=== PATIENT | female | born 1935 | race Caucasian/White ===

== ENCOUNTER 2017-03-01 16:14 | Outpatient (CLI) | payer MEDICARE, OTHER | END 2017-03-01 16:15 | disposition home or self-care (01) | LOC: BICMAMMO 16:14 | PROVIDERS: ATTEND Specialist | DX: R92.8 Other abnormal and inconclusive findings on diagnostic imaging of breast (principal); R92.1 Mammographic calcification found on diagnostic imaging of breast | CPT/HCPCS: G0204; G0279; 77066 ==

== ENCOUNTER 2017-10-18 13:07 | Outpatient (CLI) | payer MEDICARE, OTHER | END 2017-10-18 13:08 | disposition home or self-care (01) | LOC: CP 13:07 | PROVIDERS: ATTEND Internal Medicine Critical Care Medicine | DX: J44.9 Chronic obstructive pulmonary disease, unspecified (principal) | CPT/HCPCS: 94060; 94727; 94729 ==

== ENCOUNTER 2018-03-07 09:11 | Outpatient (CLI) | payer MEDICARE, OTHER | END 2018-03-07 09:12 | disposition home or self-care (01) | LOC: BICMAMMO 09:11 | PROVIDERS: ATTEND Specialist | DX: Z08 Encounter for follow-up examination after completed treatment for malignant neoplasm (principal); Z85.3 Personal history of malignant neoplasm of breast | CPT/HCPCS: 77066; G0279 ==

== ENCOUNTER 2019-03-11 09:07 | Outpatient (CLI) | payer MEDICARE, OTHER ==
--- NOTE | 2019-03-11 11:23 | MMO ---
Bilateral MAMMO Bilat Diag [facility]. CLINICAL HISTORY: Patient is 83 years old and is seen for diagnostic exam. The patient has no family history of breast cancer. The patient has a history of lumpectomy procedure revealed invasive ductal left breast carcinoma in December, and Ultrasound guided core biopsy procedure revealed invasive ductal left breast carcinoma in November,. The patient has a history of left Ultrasound Guided Core Biopsy in November,, left Lumpectomy in November, - malignant and right Excisional Biopsy in - benign. VIEWS: The views performed were: bilateral craniocaudal with tomosynthesis; bilateral mediolateral oblique with tomosynthesis; and bilateral mediolateral with tomosynthesis. FILMS COMPARED: The present examination has been compared to prior imaging studies performed at [facility] on 11/03/2015, 11/10/2015, 03/01/2017 and 03/07/2018. This study has been interpreted with the assistance of computer-aided detection. MAMMOGRAM FINDINGS: There are scattered fibroglandular densities. Benign calcifications are noted bilaterally. There are stable left sided post-operative changes. There are no suspicious masses, suspicious calcifications, or new areas of architectural distortion. IMPRESSION: THERE IS NO MAMMOGRAPHIC EVIDENCE OF MALIGNANCY. A ROUTINE FOLLOW-UP MAMMOGRAM IN 1 YEAR IS RECOMMENDED. THE RESULTS OF THIS EXAM WERE SENT TO THE PATIENT. ACR BI-RADS Category 2 - Benign finding MAMMOGRAPHY NOTE: 1. A negative mammogram report should not delay a biopsy if a dominant of clinically suspicious mass is present. 2. Approximately 10% to 15% of breast cancers are not detected by mammography. 3. Adenosis and dense breasts may obscure an underlying neoplasm. Reported by: JOSEPHINE YOUNGBLOOD MD Electonically Signed: [id number]
== END 2019-03-11 09:08 | disposition home or self-care (01) ==
LOC: BICMAMMO 09:07
PROVIDERS: ATTEND Specialist
DX: Z08 Encounter for follow-up examination after completed treatment for malignant neoplasm (principal); Z85.3 Personal history of malignant neoplasm of breast
CPT/HCPCS: 77066; G0279

== ENCOUNTER 2020-04-20 09:25 | Outpatient (CLI) | payer MEDICARE, OTHER | END 2020-04-20 09:26 | disposition home or self-care (01) | LOC: BICMAMMO 09:25 | PROVIDERS: ATTEND Specialist | DX: Z08 Encounter for follow-up examination after completed treatment for malignant neoplasm (principal); Z85.3 Personal history of malignant neoplasm of breast | CPT/HCPCS: 77066; G0279 ==

== ENCOUNTER 2020-12-21 13:20 | Outpatient (CLI) | payer MEDICARE, OTHER | END 2020-12-21 13:21 | disposition home or self-care (01) | LOC: BICMAMMO 13:20 | PROVIDERS: ATTEND Student in an Organized Health Care Education/Training Program | DX: M81.0 Age-related osteoporosis without current pathological fracture (principal); M48.02 Spinal stenosis, cervical region; M48.04 Spinal stenosis, thoracic region | CPT/HCPCS: 77080 ==

== ENCOUNTER 2021-06-29 14:22 | Outpatient (CLI) | payer MEDICARE, OTHER | END 2021-06-29 14:23 | disposition home or self-care (01) | LOC: BICRAD 14:22 | PROVIDERS: ATTEND Podiatrist | DX: S90.31XA Contusion of right foot, initial encounter (principal); R60.0 Localized edema; M79.671 Pain in right foot; M25.871 Other specified joint disorders, right ankle and foot ==

== ENCOUNTER 2021-12-13 08:28 | Outpatient (CLI) | payer MEDICARE, OTHER | END 2021-12-13 08:29 | disposition home or self-care (01) | LOC: BICCT 08:28 | PROVIDERS: ATTEND Psychiatry & Neurology Neurology | DX: F07.81 Postconcussional syndrome (principal) | CPT/HCPCS: 70450 ==

== ENCOUNTER 2023-04-17 14:00 | Inpatient (IN) | payer MEDICARE, OTHER ==
[2023-04-17 15:29] VITALS: BMI 20.7
[2023-04-20] MEDS ORDERED: Ropivacaine 0.5% HCl/PF (150 MG/30 ML VIAL) ONE (06:13)
[2023-04-20] MEDS ORDERED: fentaNYL 50 mcg/mL 1 mL Vial ONE (06:13)
[2023-04-20] MEDS ORDERED: Ropivacaine 0.2% HCl/PF 20 ML ONE (06:13)
[2023-04-20] MEDS ORDERED: Lidocaine 1% (PF) 30 ML VIAL ONE (06:13)
[2023-04-20] MEDS ORDERED: Midazolam HCl 2 mg/2 ml Vial ONE (06:13)
[2023-04-20] MEDS ORDERED: Vancomycin 1 GM/200 ML (FROZEN) BAG ONE (06:14)
[2023-04-20] MEDS ORDERED: Sodium Chloride 0.9% 100 ML ONE ×3 (06:14→06:58)
[2023-04-20] MEDS ORDERED: Tranexamic Acid 1,000 MG/10 ML VIAL ONE (06:14)
[2023-04-20] MEDS ORDERED: CEFAZOLIN 2 GM VIAL ONE (06:53)
[2023-04-20] MEDS ORDERED: cefTRIAXone (ROCEPHIN) 2 GM VIAL ONE (06:58)
[2023-04-20] MEDS ORDERED: Lidocaine 2% PF 5 ML VIAL ONE (07:04)
[2023-04-20] MEDS ORDERED: PROPOFOL 20 ML ONE (07:04)
[2023-04-20] MEDS ORDERED: Sodium Chloride 0.9% 250 ML 250 ML ONE (07:05)
[2023-04-20] MEDS ORDERED: Phenylephrine 10 MG/ML VIAL ONE (07:05)
[2023-04-20] MEDS ORDERED: fentaNYL 50 mcg/mL 1 mL Vial SLOW IVP PRN (07:28)
[2023-04-20] MEDS ORDERED: traMADol HCl 50 MG TAB PO PRN ×2 (07:30)
[2023-04-20] MEDS ORDERED: Ondansetron PF 4 MG/2 ML Vial IVP PRN ×2 (07:30→09:57)
[2023-04-20] MEDS ORDERED: Promethazine HCl 25 MG/ML VIAL IM PRN ×2 (07:30→08:25)
[2023-04-20] MEDS ORDERED: HYDROcodone/Acetaminophen 5/325 mg Tablet PO PRN (07:30)
[2023-04-20] MEDS ORDERED: Ropivacaine 0.2% 550 ML 550 ML NERVE BLCK SCH (07:30)
[2023-04-20] MEDS ORDERED: Zolpidem Tartrate 5 MG TAB PO PRN (07:30)
[2023-04-20] MEDS ORDERED: Ondansetron HCl/PF 4 MG/2 ML Vial IVP PRN (08:25)
[2023-04-20] MEDS ORDERED: Famotidine 20 MG TAB PO SCH (09:00)
[2023-04-20 09:07] LABS: RBC Count-Automated (BF) 8117 /cu.mm; WBC/Nucleated-Auto (BF) 13125 /cu.mm
[2023-04-20 09:08] LABS: BF Color Yellow; Body Fluid Source Synovial Fluid; Clarity Cloudy/Turbid (Clear); Tube # EDTA
[2023-04-20 09:15] LABS: BF Segmented Neutrophils 88 %; Cell Count Non Hematic 9 %; Lymphocytes 3 %
[2023-04-20] MEDS ORDERED: Bisacodyl 10 MG SUPP PR PRN (09:57)
[2023-04-20] MEDS ORDERED: Milk Of Magnesia 30 ML UDCUP PO PRN (09:57)
[2023-04-20] MEDS ORDERED: Methocarbamol 1 GM (10 mL) VIAL SLOW IVP PRN (09:57)
[2023-04-20] MEDS ORDERED: Ondansetron ODT 4 MG TAB PO PRN (09:57)
[2023-04-20] MEDS ORDERED: Acetaminophen 325 MG TAB PO PRN (09:57)
[2023-04-20] MEDS ORDERED: valACYclovir 500 MG TAB PO PRN (12:11)
[2023-04-20] MEDS: Lactated Ringer's 1,000 ML IV SCH (12:15)
[2023-04-20] MEDS: Vancomycin 1 GM in Premix 1 BAG IVPB SCH (17:11)
[2023-04-20] MEDS: Famotidine 20 MG TAB PO SCH (19:54)
[2023-04-20] MEDS: Ascorbic Acid 500 mg Chewable Tablet PO SCH (19:55)
[2023-04-20] MEDS: Carvedilol 3.125 MG TAB PO SCH (19:55)
[2023-04-20] MEDS: HYDROcodone/Acetaminophen 5/325 mg Tablet PO PRN (20:37)
[2023-04-21 04:26] LABS: #Eosinphils 0.2 thou/uL (0.0-0.7); #Monocytes 0.5 thou/uL (0.11-0.59); #Neutrophils 3.1 thou/uL (1.40-6.50); %Basophils 0.4 % (0.0-1.0); %Eosinophils 3.2 % (0.0-10.0); %Lymphocytes 25.3 % (21.0-51.0); %Monocytes 9.7 % (0.0-10.0); %Neutrophils 61.2 % (42.0-75.0); Hematocrit 30.2 % (36.0-47.0); Mean Corpuscular HGB CONC 33.1 g/dL (32.0-36.0); Mean Corpuscular Hemoglobin 32.5 pg (27.0-31.0); Mean Corpuscular Volume 98.1 fl (78.0-98.0); Mean Platelet Volume 9.4 fL (7.4-10.4); Platelet Count 187 10x3/uL (130-400); RBC Distribution Width 13.3 % (11.5-14.5); Red Blood Cell (RBC) Count 3.08 mill/uL (4.20-5.40); White Blood Cell (WBC) Count 5.1 10x3/uL (4.8-10.8)
[2023-04-21] MEDS ORDERED: OSTEOPRIME PO SCH (09:00)
[2023-04-21] MEDS: dilTIAZem CD 120 MG CAP PO SCH (09:34)
[2023-04-21] MEDS: cefTRIAXone\\ROCEPHIN 2 GM in Sodium Chloride 0.9% 100 ML IVPB SCH (09:34)
[2023-04-21] MEDS: Magnesium Oxide 400 MG TAB PO SCH (10:07)
[2023-04-21] MEDS: Cholecalciferol 1,000 UNITS (25 MCG) TAB PO SCH (10:07)
[2023-04-21] MEDS: Vitamin E 400 UNITS CAP PO SCH (10:08)
[2023-04-21] MEDS: Zinc Sulfate 220 MG CAP PO SCH (10:08)
[2023-04-21] MEDS: Multivitamin w/Zinc Stress 1 TAB PO SCH (10:08)
[2023-04-21] MEDS: Vit A,C & E/Lutein/Minerals Tablet PO SCH (10:08)
[2023-04-21 12:17] VITALS: BP 174/76; TEMP 98.3
[2023-04-21] MEDS: Cephalexin 250 MG CAP PO SCH (12:21)
== END 2023-04-21 17:07 | disposition home health service (06) | DRG 561 ==
LOC: SURG A 04-20 05:41 → INTOOBSV 04-20 05:41 → OBSVTOIN 04-20 06:51 → SURG B 04-20 11:33 → EDSTATUS 04-20 14:00
PROVIDERS: ADMIT Orthopaedic Surgery; ATTEND Orthopaedic Surgery
PROC: 0R9K3ZZ Drainage of Left Shoulder Joint, Percutaneous Approach (ICD-10-PCS; principal; 2023-04-20)
PROC: 0HDCXZZ Extraction of Left Upper Arm Skin, External Approach (ICD-10-PCS; 2023-04-20)
DX: T84.59XA Infection and inflammatory reaction due to other internal joint prosthesis, initial encounter (principal); L72.3 Sebaceous cyst; Z98.890 Other specified postprocedural states; Z90.710 Acquired absence of both cervix and uterus; Z82.49 Family history of ischemic heart disease and other diseases of the circulatory system; M81.0 Age-related osteoporosis without current pathological fracture; Z79.899 Other long term (current) drug therapy
CPT/HCPCS: 36415; 80048; 85025; 85060; 85610; 87070; 87205; 89051; 93005; 93010; 97139; A4306; J0696; J2001; J2250; J2371; J2704; J2795; J3010; J3370-JW; J3490; J7050

== ENCOUNTER 2023-10-12 12:00 | Inpatient (IN) | payer MEDICARE, OTHER ==
[2023-10-19 13:36] VITALS: BMI 20.7
[2023-10-26] MEDS ORDERED: PROPOFOL 20 ML ONE (08:21)
[2023-10-26] MEDS ORDERED: Ondansetron PF 4 MG/2 ML Vial ONE (08:22)
[2023-10-26] MEDS ORDERED: SUGAMMADEX SODIUM 200 MG/2 ML VIAL ONE (08:22)
[2023-10-26] MEDS ORDERED: Rocuronium Bromide 10 MG/ML (10ML VIAL) ONE (08:22)
[2023-10-26] MEDS ORDERED: fentaNYL 50 mcg/mL 1 mL Vial ONE ×2 (08:22→09:14)
[2023-10-26] MEDS ORDERED: Dexamethasone 4 mg/ml Vial ONE (08:22)
[2023-10-26] MEDS ORDERED: Sodium Chloride 0.9% 250 ML 250 ML ONE (09:07)
[2023-10-26] MEDS ORDERED: Phenylephrine 10 MG/ML VIAL ONE (09:07)
[2023-10-26] MEDS ORDERED: Vancomycin 1 GM/200 ML (FROZEN) BAG ONE (09:20)
[2023-10-26] MEDS ORDERED: Sodium Chloride 0.9% 100 ML ONE ×2 (09:20→09:25)
[2023-10-26] MEDS ORDERED: Tranexamic Acid 1,000 MG/10 ML VIAL ONE (09:20)
[2023-10-26] MEDS ORDERED: CEFAZOLIN 2 GM VIAL ONE (09:25)
[2023-10-26] MEDS ORDERED: Bisacodyl 10 MG SUPP PR PRN (09:57)
[2023-10-26] MEDS ORDERED: diphenhydrAMINE 50 MG CAP PO PRN (09:57)
[2023-10-26] MEDS ORDERED: Ondansetron PF 4 MG/2 ML Vial IVP PRN ×2 (09:57→10:30)
[2023-10-26] MEDS ORDERED: Zolpidem Tartrate 5 MG TAB PO PRN ×2 (09:57→10:30)
[2023-10-26] MEDS ORDERED: HYDROcodone/Acetaminophen 10/325 mg Tablet PO PRN ×4 (09:57→10:30)
[2023-10-26] MEDS ORDERED: Acetaminophen 325 MG TAB PO PRN (09:57)
[2023-10-26] MEDS ORDERED: Ondansetron ODT 4 MG TAB PO PRN (09:57)
[2023-10-26] MEDS ORDERED: fentaNYL 50 mcg/mL 1 mL Vial SLOW IVP PRN (10:25)
[2023-10-26] MEDS ORDERED: Ropivacaine 0.5% HCl/PF (150 MG/30 ML VIAL) ONE (10:30)
[2023-10-26] MEDS ORDERED: Ropivacaine 0.2% 550 ML 550 ML NERVE BLCK SCH (10:30)
[2023-10-26] MEDS ORDERED: traMADol HCl 50 MG TAB PO PRN ×2 (10:30)
[2023-10-26] MEDS ORDERED: Promethazine HCl 25 MG/ML VIAL IM PRN ×2 (10:30→12:03)
[2023-10-26] MEDS ORDERED: Ketorolac Tromethamine 30 MG (1 mL) VIAL IVP SCH (12:00)
[2023-10-26] MEDS ORDERED: Ondansetron HCl/PF 4 MG/2 ML Vial IVP PRN (12:03)
[2023-10-26] MEDS ORDERED: Vancomycin 1 GM VIAL ONE (12:28)
[2023-10-26] MEDS ORDERED: valACYclovir 500 MG TAB PO PRN (14:29)
[2023-10-26] MEDS: Dextrose 5 %-0.45 % NaCl 1,000 ML IV SCH (14:48)
[2023-10-26] MEDS: Ketorolac Tromethamine 30 MG (1 mL) VIAL IVP SCH (14:48)
[2023-10-26] MEDS: CEFAZOLIN 2 GM in Sodium Chloride 0.9% 100 ML IVPB SCH (17:01)
[2023-10-26] MEDS: Carvedilol 3.125 MG TAB PO SCH (17:01)
[2023-10-26] MEDS: Famotidine 20 MG TAB PO SCH (20:40)
[2023-10-26] MEDS: Vancomycin 1 GM in Premix 1 BAG IVPB SCH (20:40)
[2023-10-27 04:46] LABS: Hematocrit 29.6 % (36.0-47.0); Hemoglobin 9.8 g/dL (12.0-16.0); Mean Corpuscular HGB CONC 33.1 g/dL (32.0-36.0); Mean Corpuscular Hemoglobin 31.6 pg (27.0-31.0); Mean Corpuscular Volume 95.5 fL (78.0-98.0); Mean Platelet Volume 9.7 fL (7.4-10.4); Platelet Count 152 10x3/uL (130-400); RBC Distribution Width 15.3 % (11.5-14.5)
[2023-10-27 05:05] LABS: Anion Gap 11 mmol/L (10-20); BUN (Urea Nitrogen) 20 mg/dL (9.8-20.1); Calc. Creatinine Clearance 28 mL/min (70-130); Calcium 8.7 mg/dL (7.8-10.44); Carbon Dioxide 20 mmol/L (23-31); Chloride 113 mmol/L (98-107); Estimated GFR 41; Glucose 130 mg/dL (83-110); Potassium 3.7 mmol/L (3.5-5.1); Sodium 140 mmol/L (136-145)
[2023-10-27] MEDS: dilTIAZem CD 120 MG CAP PO SCH (08:24)
[2023-10-27 08:37] LABS: Hematocrit 31.4 % (36.0-47.0); Hemoglobin 10.7 g/dL (12.0-16.0); Mean Corpuscular HGB CONC 34.1 g/dL (32.0-36.0); Platelet Count 132 10x3/uL (130-400); RBC Distribution Width 15.3 % (11.5-14.5); Red Blood Cell (RBC) Count 3.34 mill/uL (4.20-5.40)
[2023-10-27] MEDS ORDERED: Vancomycin 1 GM in Sodium Chloride 0.9% 250 ML 300 ML IVPB SCH (10:00)
[2023-10-27] MEDS: CEFAZOLIN 2 GM in Sodium Chloride 0.9% 100 ML IVPB SCH (17:28)
[2023-10-28 06:55] LABS: Anion Gap 11 mmol/L (10-20); BUN (Urea Nitrogen) 10 mg/dL (9.8-20.1); Calc. Creatinine Clearance 42 mL/min (70-130); Calcium 8.8 mg/dL (7.8-10.44); Carbon Dioxide 22 mmol/L (23-31); Chloride 113 mmol/L (98-107); Estimated GFR 66; Glucose 106 mg/dL (83-110); Potassium 3.4 mmol/L (3.5-5.1); Sodium 143 mmol/L (136-145)
[2023-10-28] MEDS: AMOXicillin 250 MG CAP PO SCH (08:53)
[2023-10-28 12:30] VITALS: BP 162/80; TEMP 98.4
== END 2023-10-28 14:21 | disposition home or self-care (01) | DRG 483 ==
LOC: SURG A 10-26 07:04 → EDSTATUS 10-26 13:30 → SURG A 10-26 14:54
PROVIDERS: ADMIT Orthopaedic Surgery; ATTEND Orthopaedic Surgery
PROC: 0RPK08Z Removal of Spacer from Left Shoulder Joint, Open Approach (ICD-10-PCS; principal; 2023-10-26)
PROC: 0RRK00Z Replacement of Left Shoulder Joint with Reverse Ball and Socket Synthetic Substitute, Open Approach (ICD-10-PCS; 2023-10-26)
PROC: 3E033XZ Introduction of Vasopressor into Peripheral Vein, Percutaneous Approach (ICD-10-PCS; 2023-10-26)
DX: T84.59XA Infection and inflammatory reaction due to other internal joint prosthesis, initial encounter (principal); I42.0 Dilated cardiomyopathy; E78.5 Hyperlipidemia, unspecified; I50.9 Heart failure, unspecified; I11.0 Hypertensive heart disease with heart failure; Z90.710 Acquired absence of both cervix and uterus; Z96.612 Presence of left artificial shoulder joint; Z98.890 Other specified postprocedural states
CPT/HCPCS: 36415; 80048; 85027; 87070; 87205; 88304; 88331; A4306; C1713; C1776; J1100; J1885; J2371; J2405; J2704; J2795; J3010; J3370; J3370-JW; J7042; J7050

== ENCOUNTER → 2023-11-10 | Day surgery (SDC) | payer MEDICARE, OTHER ==
[~2023-11-10] MED LIST: CEFAZOLIN 2 GM VIAL ONE; Lidocaine 1% MPF 2 ML VIAL ONE; PROPOFOL 20 ML ONE; Sodium Chloride 0.9% 100 ML ONE; fentaNYL 50 mcg/mL 1 mL Vial ONE
[2023-11-10 16:12] LABS: #Basophils 0.03 10x3/uL (0.0-0.2); %Basophils 0.5 % (0.0-1.0); %Eosinophils 1.6 % (0.0-10.0); %Monocytes 5.9 % (0.0-10.0); %Neutrophils 79.7 % (42.0-75.0); Hemoglobin 11.5 g/dL (12.0-16.0); Mean Corpuscular HGB CONC 32.9 g/dL (32.0-36.0); Mean Corpuscular Hemoglobin 31.9 pg (27.0-31.0); Mean Platelet Volume 9.5 fL (7.4-10.4); Platelet Count 257 10x3/uL (130-400); RBC Distribution Width 15.5 % (11.5-14.5); Red Blood Cell (RBC) Count 3.61 mill/uL (4.20-5.40)
[2023-11-10 16:33] LABS: Anion Gap 14 mmol/L (10-20); BUN (Urea Nitrogen) 13 mg/dL (9.8-20.1); Calc. Creatinine Clearance 0 mL/min (70-130); Calcium 10.2 mg/dL (7.8-10.44); Carbon Dioxide 23 mmol/L (23-31); Chloride 106 mmol/L (98-107); Estimated GFR 55; Glucose 110 mg/dL (83-110); Potassium 4.5 mmol/L (3.5-5.1); Sodium 138 mmol/L (136-145)
== END ==
LOC: SDC 14:03
PROVIDERS: ATTEND Orthopaedic Surgery
PROC: 0RWK0JZ Revision of Synthetic Substitute in Left Shoulder Joint, Open Approach (ICD-10-PCS; principal; 2023-11-10)
DX: T84.028A Dislocation of other internal joint prosthesis, initial encounter (principal); Z98.890 Other specified postprocedural states
CPT/HCPCS: 80048; 85025; J2704; J3010

== ENCOUNTER 2023-11-13 13:19 | Inpatient (IN) | payer MEDICARE, OTHER ==
[2023-11-13] MEDS ORDERED: Ropivacaine 0.5% HCl/PF (150 MG/30 ML VIAL) ONE (14:20)
[2023-11-13] MEDS ORDERED: fentaNYL 50 mcg/mL 1 mL Vial ONE ×3 (14:22→17:07)
[2023-11-13] MEDS ORDERED: Sodium Chloride 0.9% 100 ML ONE ×2 (14:22→16:13)
[2023-11-13] MEDS ORDERED: Tranexamic Acid 1,000 MG/10 ML VIAL ONE (14:22)
[2023-11-13] MEDS ORDERED: Midazolam HCl 2 mg/2 ml Vial ONE (14:22)
[2023-11-13] MEDS ORDERED: Vancomycin 1 GM/200 ML (FROZEN) BAG ONE (14:23)
[2023-11-13] MEDS ORDERED: CEFAZOLIN 2 GM VIAL ONE (16:13)
[2023-11-13] MEDS ORDERED: Rocuronium Bromide 10 MG/ML (10ML VIAL) ONE (16:15)
[2023-11-13] MEDS ORDERED: PROPOFOL 20 ML ONE (16:15)
[2023-11-13] MEDS ORDERED: Lidocaine 1% PF 5 ML VIAL ONE (16:15)
[2023-11-13] MEDS ORDERED: PHENYLEPHRINE-NS 100 MCG/ML 10 ML SYRINGE ONE (16:45)
[2023-11-13] MEDS ORDERED: Ondansetron PF 4 MG/2 ML Vial ONE (16:54)
[2023-11-13] MEDS ORDERED: Dexamethasone 20 MG/5 ML VIAL ONE (16:54)
[2023-11-13] MEDS ORDERED: Phenylephrine 40 MG/NS 250 ML 250 ML ONE (17:20)
[2023-11-13] MEDS ORDERED: SUGAMMADEX SODIUM 200 MG/2 ML VIAL ONE (18:45)
[2023-11-13] MEDS ORDERED: hydrALAZINE 20 MG/ML VIAL ONE (19:00)
[2023-11-13] MEDS ORDERED: Ondansetron PF 4 MG/2 ML Vial IVP PRN (19:16)
[2023-11-13] MEDS ORDERED: Ondansetron ODT 4 MG TAB PO PRN (19:16)
[2023-11-13] MEDS ORDERED: Bisacodyl 10 MG SUPP PR PRN (19:16)
[2023-11-13] MEDS ORDERED: diphenhydrAMINE 50 MG CAP PO PRN (19:16)
[2023-11-13] MEDS ORDERED: Ketorolac Tromethamine 30 MG (1 mL) VIAL IVP PRN (19:16)
[2023-11-13] MEDS ORDERED: HYDROcodone/Acetaminophen 10/325 mg Tablet PO PRN ×2 (19:16)
[2023-11-13] MEDS ORDERED: Milk Of Magnesia 30 ML UDCUP PO PRN (19:16)
[2023-11-13] MEDS ORDERED: Methocarbamol 1 GM (10 mL) VIAL SLOW IVP PRN (19:16)
[2023-11-13] MEDS ORDERED: Zolpidem Tartrate 5 MG TAB PO PRN (19:16)
[2023-11-13] MEDS ORDERED: Methocarbamol 500 MG TAB PO PRN (19:16)
[2023-11-13] MEDS ORDERED: Acetaminophen 325 MG TAB PO PRN (19:16)
[2023-11-13] MEDS ORDERED: traMADol HCl 50 MG TAB PO PRN ×2 (19:16)
[2023-11-13 19:17] LABS: RBC Count-Automated (BF) 199208 /cu.mm; WBC/Nucleated-Auto (BF) 5099 /cu.mm
[2023-11-13 19:18] LABS: BF Color Red; Body Fluid Source Synovial Fluid; Clarity Cloudy/Turbid (Clear); Tube # EDTA
[2023-11-13 20:10] LABS: BF Segmented Neutrophils 18 %; Cell Count Non Hematic 9 %; Lymphocytes 73 %
[2023-11-13] MEDS: Lactated Ringer's 1,000 ML IV SCH (20:40)
[2023-11-13 20:46] VITALS: BMI 20.2
[2023-11-13] MEDS: Famotidine 20 MG TAB PO SCH (21:07)
[2023-11-13] MEDS: CEFAZOLIN 2 GM in Sodium Chloride 0.9% 100 ML IVPB SCH (23:12)
[2023-11-14 07:07] LABS: Hematocrit 34.3 % (36.0-47.0); Hemoglobin 10.5 g/dL (12.0-16.0); Mean Corpuscular HGB CONC 30.6 g/dL (32.0-36.0); Mean Corpuscular Hemoglobin 32.3 pg (27.0-31.0); Mean Corpuscular Volume 105.5 fL (78.0-98.0); Mean Platelet Volume 9.4 fL (7.4-10.4); Platelet Count 230 10x3/uL (130-400); RBC Distribution Width 15.3 % (11.5-14.5); Red Blood Cell (RBC) Count 3.25 mill/uL (4.20-5.40)
[2023-11-14] MEDS ORDERED: FLU (Fluad Triv) TS24-25 (65UP)/MF59C/PF 45 MCG/0.5 ML Syringe IM ONE (09:00)
[2023-11-14 12:42] VITALS: BP 170/81; TEMP 98.4
[2023-11-14] MEDS ORDERED: AMOXicillin 250 MG CAP PO SCH (15:00)
[2023-11-15] MEDS ORDERED: Famotidine 20 MG TAB PO SCH (09:00)
== END 2023-11-14 15:26 | disposition home or self-care (01) | DRG 483 ==
LOC: SURG A 13:19 → SURG B 20:34
PROVIDERS: ADMIT Orthopaedic Surgery; ATTEND Orthopaedic Surgery
PROC: 0RRK0J6 Replacement of Left Shoulder Joint with Synthetic Substitute, Humeral Surface, Open Approach (ICD-10-PCS; principal; 2023-11-13)
PROC: 0RPK0J6 Removal of Synthetic Substitute from Left Shoulder Joint, Humeral Surface, Open Approach (ICD-10-PCS; 2023-11-13)
DX: T84.028A Dislocation of other internal joint prosthesis, initial encounter (principal); M81.0 Age-related osteoporosis without current pathological fracture; Z79.899 Other long term (current) drug therapy; Z90.710 Acquired absence of both cervix and uterus; Y83.8 Other surgical procedures as the cause of abnormal reaction of the patient, or of later complication, without mention of misadventure at the time of the procedure; Y79.2 Prosthetic and other implants, materials and accessory orthopedic devices associated with adverse incidents; Z96.612 Presence of left artificial shoulder joint
CPT/HCPCS: 36415; 80048; 85025; 85027; 85060; 87070; 87205; 89051; C1713; C1776; J0360; J1100; J2250; J2405; J2704; J2795; J3010; J3370-JW